=== PATIENT | female | born 1945 | race Caucasian/White ===

== ENCOUNTER 2019-01-25 04:36 | Emergency (ER) | payer MEDICARE, BC ==
[~2019-01-25] VITALS: Ht 152.4 cm; Wt 63.6 kg
[2019-01-25] MEDS ORDERED: LOSA100T50 PO (04:52)
[2019-01-25] MEDS ORDERED: AMLO10TA5 PO (04:52)
[2019-01-25] MEDS ORDERED: LEVO112T2 PO (04:52)
[2019-01-25] MEDS ORDERED: SIMV10TA2 PO (04:52)
[2019-01-25] MEDS ORDERED: TRAD5TAB PO (04:52)
[2019-01-25] MEDS ORDERED: METF-877 PO (04:52)
[2019-01-25] MEDS ORDERED: ASPI81TA26 PO (04:52)
[2019-01-25 05:09] LABS: BASO # 0.1 10^3/uL (0.0-0.2); BASO % 0.5 % (0.0-1.0); EOS # 0.1 10^3/uL (0.0-0.5); EOS % 1.2 % (0.0-3.0); HEMATOCRIT 42.2 % (36.0-47.0); HEMOGLOBIN 14.1 g/dl (12.0-15.5); LYMPH # 2.1 10^3/uL (1.5-5.0); LYMPH % 21.3 % (24.0-44.0); MEAN CORPUSCULAR HEMOGLOBIN 28.7 pg (27.0-33.0); MEAN CORPUSCULAR HGB CONC 33.4 g/dl (32.0-36.5); MEAN CORPUSCULAR VOLUME 85.8 fl (80.0-96.0); MONO # 0.7 10^3/uL (0.0-0.8); MONO % 7.3 % (0.0-5.0); NEUTROPHILS % 69.4 % (36.0-66.0); PLATELET COUNT, AUTOMATED 192 10^3/uL (150-450); RED BLOOD COUNT 4.92 10^6/uL (4.00-5.40)
[2019-01-25] MEDS ORDERED: MORPHINE 4 MG/ML 1ML VIAL/SYRINGE (J2270) IV ONE ×3 (05:15→06:30)
[2019-01-25] MEDS ORDERED: NS 500 ML IV ONE (05:15)
[2019-01-25 05:48] LABS: ALBUMIN 3.7 GM/DL (3.2-5.2); ALT/SGPT 36 U/L (12-78); BILIRUBIN,DIRECT < 0.1 MG/DL (0.0-0.2); BILIRUBIN,TOTAL 0.3 MG/DL (0.2-1.0); BLOOD UREA NITROGEN 9 MG/DL (7-18); CALCIUM LEVEL 8.1 MG/DL (8.8-10.2); CARBON DIOXIDE LEVEL 28 MEQ/L (21-32); CHLORIDE LEVEL 105 MEQ/L (98-107); CK-MB VALUE MASS < 1.0 NG/ML (<3.6); CPK CREATINE PHOSPHOKINASE 63 U/L (26-192); CREATININE FOR GFR 0.63 MG/DL (0.55-1.30); GLOMERULAR FILTRATION RATE > 60.0 (>39); GLUCOSE, FASTING 144 MG/DL (70-100); LIPASE 134 U/L (73-393); MB/CK RELATIVE INDEX 1.59 (< OR =4); SODIUM LEVEL 141 MEQ/L (136-145); TOTAL PROTEIN 6.9 GM/DL (6.4-8.2); TROPONIN I < 0.02 NG/ML (< 0.10)
[2019-01-25 05:58] LABS: INR 0.94; PROTHROMBIN TIME 12.3 SECONDS (11.8-14.0)
[2019-01-25 05:59] LABS: PARTIAL THROMBOPLASTIN TIME 28.9 SECONDS (25.0-38.4)
[2019-01-25] MEDS: GASTROGRAFIN SOLUTION 30ML PO SCH ×2 (06:22→06:50)
--- NOTE | 2019-01-25 07:11 | ECGEPIP ---
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
--- NOTE | 2019-01-25 07:12 | ECGEPIP ---
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
[2019-01-25] MEDS ORDERED: ISOVUE-370 76% 100ML VIAL (Q9967) As Ordered ONE (07:45)
--- NOTE | 2019-01-25 08:15 | REPVR ---
PROCEDURE INFORMATION: Exam: CT Abdomen And Pelvis With Contrast Exam date and time: 01/25/2019 5:33 AM Clinical history: 73 years old, female; Abdominal pain; Localized; Right lower quadrant (rlq); Additional info: R pain TECHNIQUE: Imaging protocol: Computed tomography of the abdomen and pelvis with intravenous contrast. Radiation optimization: All CT scans at this facility use at least one of these dose optimization techniques: automated exposure control; mA and/or kV adjustment per patient size (includes targeted exams where dose is matched to clinical indication); or iterative reconstruction. Contrast material: Severe; Contrast volume: 100 ml; Contrast route: AC; COMPARISON: No relevant prior studies available. FINDINGS: Liver: Mild diffuse hypoattenuation of the liver is present consistent with hepatic steatosis. Gallbladder and bile ducts: The gallbladder is surgically absent, with metallic clips in the gallbladder fossa. The extrahepatic bile ducts are age-appropriate, measuring 6.3 mm. No ductal calculus. Pancreas: The pancreas is normal. No pancreatic mass or ductal dilatation identified. Spleen: Normal. No splenomegaly. Adrenals: Normal. No mass. Kidneys and ureters: Nonspecific thin-walled cyst LEFT anterior pararenal space anterior to and separate from the LEFT kidney measuring 2.4 x 2.7 x 3.5 cm. Stomach and bowel: Sigmoid and distal descending colonic diverticula are present without evidence of diverticulitis. Appendix: The vermiform appendix is normal. Intraperitoneal space: See Vasculature Finding. Vasculature: Infrarenal abdominal aortic aneurysm is present measuring 3.5 cm AP dimension. Mild RIGHT anterolateral mural thrombus measuring 6.5 mm. A retroaortic left renal vein is present. Lymph nodes: Unremarkable. No enlarged lymph nodes. Bladder: The urinary bladder is partially decompressed and somewhat difficult to assess. Reproductive: Unremarkable as visualized. Bones/joints: Slight L4-5 anterolisthesis. T11-12, L1-2 and L4-5 disc calcification without displacement. Lumbar spine vertebral body marginal osteophytes are noted at multiple levels. Soft tissues: Unremarkable. Other findings: There is no evidence of rupture or leakage. IMPRESSION: 1. Infrarenal abdominal aortic aneurysm. 2. Nonspecific LEFT retroperitoneal cystic lesion. Differential diagnosis includes cystic lymphangioma, mucinous cystadenoma, cystic mesothelioma and other etiologies. Comparison with prior studies recommended, if available. Otherwise followup may be helpful. 3. Post cholecystectomy. 4. Fatty infiltration of the liver. 5. Diverticulosis. Electronically signed by: Geoff Batista On 01/25/2019 08:15:19 AM
[2019-01-25] MEDS ORDERED: NORC1TAB7 PO (10:20)
[2019-01-25 10:33] VITALS: BP 131/61
--- NOTE | 2019-01-27 07:15 | ED PDOC ---
Post-Departure Follow-Up certified letter sent to pt re formal read of ct abd/p. no pcp listed. obtain pc p name and fax for fu Darryn Barrios MD Jan 27, 2019 07:15
== END 2019-01-25 10:35 | disposition home or self-care (01) ==
LOC: M ED 04:36
DX: R10.9 Unspecified abdominal pain (principal); I71.4 Abdominal aortic aneurysm, without rupture; R19.09 Other intra-abdominal and pelvic swelling, mass and lump; K76.0 Fatty (change of) liver, not elsewhere classified; K57.32 Diverticulitis of large intestine without perforation or abscess without bleeding; E11.9 Type 2 diabetes mellitus without complications; I10 Essential (primary) hypertension; E78.5 Hyperlipidemia, unspecified; Z79.82 Long term (current) use of aspirin; Z79.84 Long term (current) use of oral hypoglycemic drugs; Z79.899 Other long term (current) drug therapy; Z88.0 Allergy status to penicillin; Z88.1 Allergy status to other antibiotic agents
CPT/HCPCS: 74177; 80048; 80076; 81001; 82550; 82553; 83605; 83690; 84484; 85025; 85610; 85730; 93005; 93041; 96374; 96376; 99285; J2270; Q9963; Q9967